=== PATIENT | female | born 1955 | race Caucasian/White ===

== ENCOUNTER 2017-04-27 13:34 | Emergency (ER) | payer MEDICAID ==
[~2017-04-27] VITALS: Ht 162.6 cm; Wt 80.0 kg
[~2017-04-27 13:34] MED LIST: CEFD300C37 PO; CITA40TA12 PO; HYDR25CA PO; METO50TA82 PO; MIRT15TA4 PO; NICO-487 TD; OXYC-307 PO; PANT40TA3 PO; POLY17PO5 PO
[2017-04-27 13:45] VITALS: BP 160/90
[2017-04-27] MEDS ORDERED: METO-93 PO (13:52)
[2017-04-27] MEDS ORDERED: HYDR25TA6 PO (13:52)
[2017-04-27] MEDS ORDERED: HYDROcodone/APAP 5/325 TABLET ONE (15:23)
[2017-04-27] MEDS ORDERED: HYDROcodone/APAP 5/325 TABLET PO ONE (15:30)
== END 2017-04-27 16:54 | disposition home or self-care (01) ==
LOC: ED 14:36
DX: S16.1XXA Strain of muscle, fascia and tendon at neck level, initial encounter (principal); S39.012A Strain of muscle, fascia and tendon of lower back, initial encounter; M47.892 Other spondylosis, cervical region; M51.36 Other intervertebral disc degeneration, lumbar region; R51 Headache; I10 Essential (primary) hypertension; W01.0XXA Fall on same level from slipping, tripping and stumbling without subsequent striking against object, initial encounter; Y93.89 Activity, other specified; Y92.009 Unspecified place in unspecified non-institutional (private) residence as the place of occurrence of the external cause; Y99.9 Unspecified external cause status
CPT/HCPCS: 70450; 72110; 72125; 99284